=== PATIENT | male | born 1955 | race Caucasian/White ===

== ENCOUNTER 2024-10-24 11:29 | Day surgery (SDC) | payer OTHER ==
[~2024-10-24] VITALS: Ht 182.9 cm; Wt 96.9 kg
[2024-10-24] VITALS (12 sets, daily range): BP systolic 122–164; BP diastolic 62–98
[~2024-10-24 11:29] MED LIST: ALBU90OI INH; AMLO10 PO; Acetaminophen 500 MG Tab PO SCH; CeFAZolin Sodium 2,000 MG in NS 100 ML IV SCH; Chlorhexidine Mouth Care 15 ML UDC MT SCH; GABA100 PO; Lactated Ringer's 1,000 ML IV SCH; OxyCODONE HCL 10 MG TABCR PO SCH; Ropivacaine 0.5% HCl/Pf 123.125 MG,EPINEPHrine HCL 0.25 MG,Ketorolac Tromethamine 15 MG... INFIL SCH; TAMS.4ER PO; TIOT18 INH; Tranexamic Acid 100 ML IV SCH; Vancomycin HCL 1,000 MG in NS 250 ML IV SCH; ZOLP5 PO
[2024-10-24] MEDS ORDERED: CeFAZolin Sodium 2,000 MG VIAL ONE (11:43)
--- NOTE | 2024-10-24 12:27 | NUR ---
Ambulatory in Day Surgery History, Chart, Medications and Allergies reviewed before start of procedure. Pre-Op teaching done. Pt verbalizes understanding.
[2024-10-24] MEDS ORDERED: propofoL 20 ML IV ONE (12:35)
[2024-10-24] MEDS ORDERED: FentaNYL Citrate 50 MCG/ML 2 ML Injection ONE (12:36)
[2024-10-24] MEDS ORDERED: Midazolam HCl 1MG / ML 2ML Vial ONE (12:36)
[2024-10-24] MEDS ORDERED: Promethazine HCl 25 MG Tab PO PRN (13:50)
[2024-10-24] MEDS ORDERED: Bisacodyl 10 MG Supp PR PRN (13:50)
[2024-10-24] MEDS ORDERED: DiphenhydrAMINE HCL 25 MG Cap PO PRN (13:50)
[2024-10-24] MEDS ORDERED: HYDROmorphone HCl/Pf 1MG SYR IV PRN (13:55)
[2024-10-24] MEDS ORDERED: FLU VACC TS2024-25(6MOS UP)/PF 45 MCG/0.5 ML SYRINGE IM PRN (13:55)
[2024-10-24] MEDS ORDERED: Metoclopramide HCl 5MG / ML 2ML Vial IV PRN (13:55)
[2024-10-24] MEDS ORDERED: Ondansetron HCl 2 MG / ML 2ML Vial IV PRN (13:55)
[2024-10-24] MEDS ORDERED: OxyCODONE HCL 5 MG TAB PO PRN ×2 (13:55)
[2024-10-24] MEDS ORDERED: Magnesium Hydroxide Conc 10 ML UDC PO PRN (14:00)
[2024-10-24] MEDS ORDERED: Lactated Ringer's 1,000 ML IV SCH (14:00)
[2024-10-24] MEDS ORDERED: Tiotropium Bromide 2.5 MCG/ACT MIST INHAL (10 ACT/4 GM) INH SCH (14:10)
[2024-10-24] MEDS ORDERED: Albuterol HFA200 ACT/6.7 GM INH INH PRN (14:10)
[2024-10-24] MEDS ORDERED: Vancomycin HCl 1000 MG ADDvantage ONE (14:14)
[2024-10-24] MEDS ORDERED: Acetaminophen 500 MG Tab PO SCH (16:00)
--- NOTE | 2024-10-24 17:21 | NUR ---
POST-OP ARRIVAL TO ROOM @1720 AOX4, DENIES PAIN, SPINAL IN OR CAN FEEL TOES AND FEET, WIGGLES ALL EXTS. DENIES N/V TOLERATING PO INTAKE. VSS. ORIENTED TO CALL LIGHT
[2024-10-24] MEDS ORDERED: Ketorolac Tromethamine 15mg Vial IV SCH (18:00)
[2024-10-24] MEDS ORDERED: OXYC5 PO (19:36)
[2024-10-24] MEDS ORDERED: ONDA4 PO (19:38)
[2024-10-24] MEDS ORDERED: XARELTO20 MG PO (19:38)
--- NOTE | 2024-10-24 19:49 | NUR ---
PM NOTE REPORT TAKEN FROM SANJANA MONTES. REPORT FROM SANJANA MACIEL THAT PT HAS REQUESTED TO DISCHARGE. DISCHARGE ORDERED BY DR. CHAU. AND SANJANA MACIEL WENT OVER DISCHARGE INSTURCTIONS WITH PT. MED REC COMPLETED. TXA INFUSED. PT HAS BEEN UP AND AMBULATING WELL AND HAS VOIDED SOME. DENIES N/T IN EXT. SPINAL SITE WNL. NO N/V, TOLERATING PO INTAKE. VITALS ARE STABLE. SURGICAL SITE WNL, DRESSING INTACT. PT REPORTS PAIN IS TOLERABLE AT THIS TIME. REPORTS 01/15. HE DECLINES ANYTHING FOR PAIN. PT IS WAITING FOR HIS RIDE WHO IS SUPPOSE TO ARRIVE AT 2230.
[2024-10-24] MEDS ORDERED: Zolpidem Tartrate 10 MG Tab PO SCH (21:00)
[2024-10-24] MEDS ORDERED: Gabapentin 300 MG Cap PO SCH (21:00)
[2024-10-24] MEDS ORDERED: Docusate Sodium 100 MG Cap PO SCH (21:00)
[2024-10-24] MEDS ORDERED: CeFAZolin Sodium 2,000 MG in NS 100 ML IV SCH (22:00)
--- NOTE | 2024-10-24 22:35 | NUR ---
READ PT DISCHARGE INSTRUCTIONS AND DCD IV WITH CATH INTACT PER REQUEST OF DENNIS MACIEL,I ADVISED PT HIS CURRENT SURGICAL DRESSING IS NOT WATERPROOF AND TO KEEP DRESSING ON AND DRY UNTIL CONFIRMED WITH DR CALRKE TOMORROW PER CALL TO HIS OFFICE AND OUR STAFF WILL CALL TOMORROW TO CONFIRM,THEN WILL ADVISE PT.I SENT HOME AQUACELLS AND 3 M MEDIPORES WITH PT. PTS FRIEND AGREES HE CAN NIGHT MANAGER ANYTHING FURTHER PT MAY NEED AND WILL BE NOTIFIED TOMORROW WELL. PT DISCHARGED WITH FRIEND VIA CHAIR PER THIS RN,PT USING WALKER APPROPRIATELY WTIH TRANSFER INTO VEHICLE.
--- NOTE | 2024-10-24 22:35 | NUR ---
DISCHARGE PT DISCHARGED WITH HIS RIDE WITH BELONGINGS IN PLACE, WHEELED OUT BY INSULATION NOZZLEMAN. INSULATION NOZZLEMAN FURTHER WENT OVER DISCHARGE INSTRUCTIONS, AND REMOVED IV. VITALS ARE STABLE.
--- NOTE | 2024-10-25 07:32 | NUR ---
DR CLARKE HERE THIS AM.REVIEWED DRESSING CARE AND D/C ORDERS WITH DOCTOR. DR CLARKE INSTRUCTED CURRENT DRESSING CAN BE SHOWERED OVER AND PT IS TO LEAVE DRESSING ON UNTIL POSTOP VISIT UNLESS IT GETS SOILED, THEN WILL NEED TO CONTACT DR CLARKE.I REPRINTED FULL D/C PACKET TO CONFIRM IF PT HAS ANY FURTHER QUESTIONS,AND WOULD LIKE FRIEND TO HAVE SECOND COPY FRIEND IS HELPING WITH CARE AND DROVE PT HOME.
[2024-10-25] MEDS ORDERED: Tamsulosin HCl 0.4 MG Cap PO SCH (09:00)
[2024-10-25] MEDS ORDERED: Linezolid 600 MG Tab PO SCH (09:00)
[2024-10-25] MEDS ORDERED: Rivaroxaban 10 MG Tab PO SCH (19:00)
== END 2024-10-24 22:35 | disposition home or self-care (01) ==
LOC: ORD 11:29 → ORSCMMR 11:29 → ORD 11:45 → SURS 16:57 → ORD 17:15
PROVIDERS: Orthopaedic Surgery
PROC: 0SRD0J9 Replacement of Left Knee Joint with Synthetic Substitute, Cemented, Open Approach (ICD-10-PCS; principal; 2024-10-24 14:00)
DX: M17.12 Unilateral primary osteoarthritis, left knee (principal); I10 Essential (primary) hypertension; Z87.891 Personal history of nicotine dependence; Z79.899 Other long term (current) drug therapy; J44.9 Chronic obstructive pulmonary disease, unspecified; Z85.46 Personal history of malignant neoplasm of prostate
CPT/HCPCS: 73560-LT; A9270; C1713; C1776; J0171; J0690; J0735; J1885; J2250; J2704; J2795; J3010; J3370; J7050; J7120